=== PATIENT | male | born 1985 | race American Indian/Alaskan Native ===

== ENCOUNTER 2017-06-27 05:46 | Emergency (ER) | payer BC ==
[2017-06-27 05:50] VITALS: BP 117/69
[2017-06-27] MEDS ORDERED: MOTRIN PO ONE (07:39)
--- NOTE | 2017-06-27 08:04 | Emergency Department Report ---
ED Male HPI - General Chief complaint: Urogenital-Male Stated complaint: STD Source: patient Mode of arrival: Ambulatory Limitations: No Limitations - History of Present Illness Initial comments: 31 year old male presents to ED with herpes flare. patient states he has had genital herpes for 1 year but does not have a RX for herpes medication. patient is stable, neurologically intact and in no acute distress. patient states he is sexually active with protection. patient denies dysuria, discharge, testicular pain/swelling. MD Complaint: other (herpes flare ) -: Gradual, week(s) (1) Location: penis Radiation: none Severity: mild Quality: burning Consistency: intermittent Improves with: none Worsens with: sexual intercourse denies other symptoms, rash. denies: discharge, swelling, mass, blood in urine , dysuria, fever, nausea/vomiting, incontinence - Related Data Sexually active: Yes Previous Rx's Medication Instructions Recorded Last Taken Type Acyclovir [Zovirax] 400 mg PO BID #14 tablet 06/27/17 Unknown Rx Allergies Allergy/AdvReac Type Severity Reaction Status Date / Time No Known Allergies Allergy Unverified 06/27/17 05:54 ED Review of Systems ROS: Stated complaint: STD Other details as noted in HPI Constitutional: denies: chills, fever Eyes: denies: eye pain, eye discharge, vision change ENT: denies: ear pain, throat pain Respiratory: denies: cough, shortness of breath, wheezing Cardiovascular: denies: chest pain, palpitations Endocrine: no symptoms reported Gastrointestinal: denies: abdominal pain, nausea, diarrhea Genitourinary: denies: urgency, dysuria Musculoskeletal: denies: back pain, joint swelling, arthralgia Skin: rash, lesions Neurological: denies: headache, weakness, paresthesias Psychiatric: denies: anxiety, depression Hematological/Lymphatic: denies: easy bleeding, easy bruising ED Past Medical Hx - Past Medical History Previous Medical History?: No - Surgical History Past Surgical History?: No - Social History Smoking Status: Former Smoker Substance Use Type: Alcohol, Marijuana - Medications Home Medications: Home Medications Medication Instructions Recorded Confirmed Last Taken Type Acyclovir [Zovirax] 400 mg PO BID #14 tablet 06/27/17 Unknown Rx ED Physical Exam - General Limitations: No Limitations General appearance: alert, in no apparent distress - Head Head exam: Present: atraumatic, normocephalic - Eye Eye exam: Present: normal appearance - ENT ENT exam: Present: mucous membranes moist - Neck Neck exam: Present: normal inspection - Respiratory Respiratory exam: Present: normal lung sounds bilaterally. Absent: respiratory distress - Cardiovascular Cardiovascular Exam: Present: regular rate, normal rhythm. Absent: systolic murmur, diastolic murmur, rubs, gallop - GI/Abdominal GI/Abdominal exam: Present: soft, normal bowel sounds. Absent: distended, tenderness, guarding, rebound - Rectal Rectal exam: Present: deferred - Extremities Exam Extremities exam: Present: normal inspection - Back Exam Back exam: Present: normal inspection - Neurological Exam Neurological exam: Present: alert, oriented X3, normal gait - Psychiatric Psychiatric exam: Present: normal affect, normal mood - Skin Skin exam: Present: warm, dry, intact, normal color, rash (penile rash/lesion present on top of shaft consistent with herpes) ED Course Vital Signs 06/27/17 05:48 Temperature 97.7 F Pulse Rate 62 Respiratory 18 Rate Blood Pressure 117/69 O2 Sat by Pulse 98 Oximetry ED Medical Decision Making - Medical Decision Making 31 year old male presents to ED with genital herpes flare. patient is stable, neurologically intact and in no acute distress. patient will be given RX for herpes medication and [employer] coupon. patient was informed that RX is $8 at [facility] with [facility] coupon. Critical care attestation.: If time is entered above; I have spent that time in minutes in the direct care of this critically ill patient, excluding procedure time. ED Disposition Clinical Impression: Herpes genitalia Qualifiers: Herpes simplex infection site: penis Qualified Code(s): A60.01 - Herpesviral infection of penis Disposition: - TO HOME OR SELFCARE Is pt being admited?: No Does the pt Need Aspirin: No Condition: Stable Instructions: Genital Herpes Simplex (ED) Prescriptions: Acyclovir [Zovirax] 400 mg PO BID #14 tablet Referrals: [facility] [Outside] - 3-5 Days [facility] [Outside] - 3-5 Days VINEET GRAY MD [Staff Physician] - 3-5 Days
== END 2017-06-27 08:17 | disposition home or self-care (01) ==
LOC: ED 05:46
DX: A60.01 Herpesviral infection of penis (principal); F12.10 Cannabis abuse, uncomplicated
CPT/HCPCS: 99282